=== PATIENT | female | born 1960 | race Caucasian/White ===

== ENCOUNTER 2023-12-25 12:38 | Outpatient (CLI) | payer OTHER ==
[2023-12-25 14:01] LABS: Hemoglobin 13.6 g/dL (12.0-15.5); Mean Corpuscular HGB CONC 33.2 g/dL (32.0-36.0); Mean Corpuscular Volume 96.5 fL (81.6-98.3); Mean Platelet Volume 9.7 fL (7.4-10.4); Platelet Count 401 10x3/uL (150-450); RBC Distribution Width 12.9 % (11.5-14.5); Red Blood Cell (RBC) Count 4.25 10x6/uL (3.90-5.03); White Blood Cell (WBC) Count 6.1 10x3/uL (3.5-10.5)
[2023-12-25 14:15] LABS: INR-International Normal Ratio 1.1; PTT 26.5 sec (22.0-33.0); Prothrombin Time 11.9 sec (9.5-12.1)
[2023-12-25 14:18] LABS: Anion Gap 15 mmol/L (10-20); BUN (Urea Nitrogen) 10 mg/dL (9.8-20.1); Calc. Creatinine Clearance 0 mL/min (70-130); Calcium 9.7 mg/dL (7.8-10.44); Carbon Dioxide 27 mmol/L (23-31); Chloride 107 mmol/L (98-107); Estimated GFR 83; Glucose 125 mg/dL (80-115); Potassium 4.1 mmol/L (3.5-5.1); Sodium 145 mmol/L (136-145)
== END 2023-12-25 12:39 | disposition home or self-care (01) ==
LOC: CSHLAB 12:38
PROVIDERS: ATTEND Orthopaedic Surgery
DX: Z01.818 Encounter for other preprocedural examination (principal); M54.12 Radiculopathy, cervical region
CPT/HCPCS: 80048; 85027; 85610; 85730